=== PATIENT | female | born 1990 | race African-American/Black ===

== ENCOUNTER 2023-08-10 08:56 | Emergency (ER) | payer BC ==
[2023-08-10 09:04] VITALS: BP 133/87; PULSE 84; RESP 20; TEMP 98.7; BMI 23.2
[2023-08-10] MEDS: SODIUM CHLORIDE 0.9% 500 ML INFUS.BAG IV ONE (10:56)
[2023-08-10 11:10] LABS: BASO % 0.4 % (0-2.0); EOS % 0.4 % (0-4.5); HEMATOCRIT 36.4 % (32.4-45.2); HEMOGLOBIN 12.7 GM/dL (10.7-15.3); LYMPH % 16.8 % (8-40); MCHC 34.9 g/dl (32.0-36.0); MEAN CELL VOLUME 91.9 fl (80-96); MEAN PLT VOLUME 8.1 fl (7.5-11.1); MONO % 5.7 % (3.8-10.2); NEUT % 76.7 % (42.8-82.8); PLATELET COUNT 268 10^3/uL (134-434); RBC 3.96 M/mm3 (3.60-5.2); RDW 13.7 % (11.6-15.6); WHITE BLOOD COUNT 10.5 K/mm3 (4.0-10.0)
[2023-08-10 11:12] LABS: PH,URINE 6.5 (5.0-8.0); URINE APPEARANCE CLEAR; URINE BILIRUBIN NEGATIVE (NEGATIVE); URINE COLOR YELLOW; URINE GLUCOSE (UA) NEGATIVE (NEGATIVE); URINE KETONE NEGATIVE (NEGATIVE); URINE LEUK ESTERASE NEGATIVE (NEGATIVE); URINE NITRITE NEGATIVE (NEGATIVE); URINE PROTEIN NEGATIVE (NEGATIVE)
[2023-08-10 11:40] LABS: POTASSIUM 4.3 mmol/L (3.5-5.1)
[2023-08-10 11:41] LABS: CALCIUM 9.2 mg/dL (8.5-10.1)
[2023-08-10 11:42] LABS: ALBUMIN 3.3 g/dl (3.4-5.0); BLOOD UREA NITROGEN 8.8 mg/dL (7-18)
[2023-08-10 11:45] LABS: CREATININE 0.6 mg/dL (0.55-1.3)
[2023-08-10 11:47] LABS: BILIRUBIN,TOTAL 0.7 mg/dL (0.2-1); TOT PROT 6.5 g/dl (6.4-8.2)
== END 2023-08-10 15:03 | disposition home or self-care (01) ==
LOC: JER 08:56
DX: O20.9 Hemorrhage in early pregnancy, unspecified (principal); O26.891 Other specified pregnancy related conditions, first trimester; R10.30 Lower abdominal pain, unspecified; R42 Dizziness and giddiness; E86.0 Dehydration; R63.0 Anorexia; Z3A.11 11 weeks gestation of pregnancy
CPT/HCPCS: 36415; 76817-TC; 80053; 81003; 84702; 84703; 85025; 86850; 86900; 86901; 87086; 99284-25